=== PATIENT | male | born 1985 | race Caucasian/White ===

== ENCOUNTER 2020-07-24 23:49 | Emergency (ER) | payer OTHER ==
[~2020-07-24] VITALS: Ht 177.8 cm; Wt 97.0 kg
[2020-07-25] MEDS ORDERED: LIDOCAINE 1% 10 ML VIAL ID ONE (02:15)
[2020-07-25 04:00] VITALS: BP 136/82
[2020-07-25] MEDS ORDERED: PERTUSS(ACELL),DIPH,TET VAC/PF 0.5 ML SYRINGE IM. ONE (04:00)
== END 2020-07-25 04:11 | disposition home or self-care (01) ==
LOC: EMS 23:55
DX: S71.111A Laceration without foreign body, right thigh, initial encounter (principal); W19.XXXA Unspecified fall, initial encounter; Y93.89 Activity, other specified; Y92.89 Other specified places as the place of occurrence of the external cause; Y99.8 Other external cause status
CPT/HCPCS: 12001; 90471; 90715; 99283; J3490